=== PATIENT | female | born 1955 | race African-American/Black ===

== ENCOUNTER 2017-01-25 08:52 | Emergency (ER) | payer OTHER ==
[2017-01-25] MEDS ORDERED: Adacel (T-DAP) 0.5 ML VIAL ONE (09:26)
[2017-01-25] MEDS ORDERED: traMADol HCl 50 MG TAB ONE (09:28)
--- NOTE | 2017-01-25 10:44 | RAD ---
THREE VIEWS OF THE RIGHT FIFTH DIGIT INDICATIONS: Laceration. FINDINGS: There is metallic ornamentation overlying the wrist and right hand, which precludes reliable assessm ent. There is a soft tissue defect of the mid fifth digit of the right hand. No displaced fracture . Chronic appearing deformity of the fifth metacarpal is present. IMPRESSION: Soft tissue laceration of the fifth digit of the right hand. No underlying fracture. POS: CAMILO
--- NOTE | 2017-01-25 10:46 | RAD ---
THREE VIEWS OF THE LUMBAR SPINE INDICATIONS: Low back pain, subsequent to injury, new onset. FINDINGS: There is a mild superior endplate compression deformity of L2. There is multilevel degenerative matias nge of the lumbar spine. There is vascular calcification. Metallic clips overly the right abdomen. Pelvic phleboliths are seen. IMPRESSION: Mild superior endplate compression fracture of L2. This may be recent, in light of the history of p ain and injury. As necessary, followup with MRI may be performed to evaluate for acute marrow edema . POS: MECHELLE
== END 2017-01-25 10:32 | disposition home or self-care (01) ==
LOC: BURERS 08:52
DX: S61.216A Laceration without foreign body of right little finger without damage to nail, initial encounter (principal); S33.5XXA Sprain of ligaments of lumbar spine, initial encounter; S10.93XA Contusion of unspecified part of neck, initial encounter; S50.11XA Contusion of right forearm, initial encounter; I10 Essential (primary) hypertension; J44.9 Chronic obstructive pulmonary disease, unspecified; F17.210 Nicotine dependence, cigarettes, uncomplicated; Z79.899 Other long term (current) drug therapy; Y04.2XXA Assault by strike against or bumped into by another person, initial encounter
CPT/HCPCS: 72100; 90471; 90715

== ENCOUNTER 2020-03-17 19:39 | Emergency (ER) | payer OTHER ==
[2020-03-17 21:40] LABS: ALT (SGPT) 13 U/L (8-55); AST (SGOT) 19 U/L (5-34); Albumin 3.5 g/dL (3.4-4.8); Alkaline Phosphatase 71 U/L (40-110); Anion Gap 17 mmol/L (10-20); BUN (Urea Nitrogen) 13 mg/dL (9.8-20.1); Bilirubin, Total 0.8 mg/dL (0.2-1.2); Calc. Creatinine Clearance 0 mL/min (70-130); Calcium 8.8 mg/dL (7.8-10.44); Carbon Dioxide 25 mmol/L (23-31); Chloride 103 mmol/L (98-107); Estimated GFR-MDRD 67; Globulin 3.8 g/dL (2.4-3.5); Glucose 85 mg/dL (80-115); Potassium 3.2 mmol/L (3.5-5.1); Protein, Total 7.3 g/dL (6.0-8.3); Sodium 142 mmol/L (136-145)
[2020-03-17 21:46] LABS: Band 2 % (5-11); Eosinophils 8 % (0-10); Hemoglobin 12.3 g/dL (12.0-16.0); Lymphocytes 19 % (21-51); MDiff Complete? YES; Mean Corpuscular HGB CONC 31.2 g/dL (32.0-36.0); Mean Corpuscular Hemoglobin 29.1 pg (27.0-31.0); Mean Corpuscular Volume 93.3 fL (78.0-98.0); Mean Platelet Volume 7.1 fL (7.4-10.4); Monocytes 12 % (0-10); Neutrophil 59 % (42-75); Platelet Count 220 thou/uL (130-400); Platelet Morphology Comment Appears Adequate; RBC Distribution Width 12.6 % (11.5-14.5); RBC Morphology Normal; Red Blood Cell (RBC) Count 4.22 mill/uL (4.20-5.40); White Blood Cell (WBC) Count 8.3 thou/uL (4.8-10.8)
[2020-03-17] MEDS ORDERED: Morphine 4 MG/ML VIAL ONE (22:29)
== END 2020-03-17 23:15 | disposition home or self-care (01) ==
LOC: BURERS 19:39
DX: B34.9 Viral infection, unspecified (principal); I10 Essential (primary) hypertension; Z87.891 Personal history of nicotine dependence; J44.9 Chronic obstructive pulmonary disease, unspecified
CPT/HCPCS: 80053; 83605; 83880; 84484; 85025; 87804; 93005; 96374; J2270

== ENCOUNTER 2020-10-18 11:37 | Emergency (ER) | payer MEDICARE, OTHER ==
[~2020-10-18 11:37] MED LIST: Iopamidol 370 76% 100 ML VIAL ONE
[2020-10-18 12:27] LABS: #Eosinphils 0.1 thou/uL (0.0-0.7); #Lymphocytes 1.2 thou/uL (1.20-3.40); #Monocytes 0.5 thou/uL (0.11-0.59); #Neutrophils 9.7 thou/uL (1.40-6.50); %Basophils 0.4 % (0.0-1.0); %Eosinophils 1.2 % (0.0-10.0); %Lymphocytes 10.7 % (21.0-51.0); %Monocytes 4.2 % (0.0-10.0); %Neutrophils 83.5 % (42.0-75.0); Hemoglobin 12.6 g/dL (12.0-16.0); Mean Corpuscular HGB CONC 30.2 g/dL (32.0-36.0); Mean Corpuscular Hemoglobin 28.5 pg (27.0-31.0); Mean Corpuscular Volume 94.5 fL (78.0-98.0); Mean Platelet Volume 7.9 fL (7.4-10.4); Platelet Count 360 thou/uL (130-400); RBC Distribution Width 14.5 % (11.5-14.5); Red Blood Cell (RBC) Count 4.41 mill/uL (4.20-5.40); White Blood Cell (WBC) Count 11.6 thou/uL (4.8-10.8)
[2020-10-18] MEDS ORDERED: Ondansetron PF 4 MG/2 ML Vial ONE (12:43)
[2020-10-18] MEDS ORDERED: Cefepime 2 GM VIAL ONE (12:43)
[2020-10-18] MEDS ORDERED: Sodium Chloride 0.9% 100 ML ONE (12:43)
[2020-10-18] MEDS ORDERED: Morphine 2 MG/ML VIAL ONE (12:43)
[2020-10-18 12:44] LABS: ALT (SGPT) 22 U/L (8-55); AST (SGOT) 26 U/L (5-34); Albumin 3.7 g/dL (3.4-4.8); Alkaline Phosphatase 90 U/L (40-110); Anion Gap 17 mmol/L (10-20); BUN (Urea Nitrogen) 8 mg/dL (9.8-20.1); Bilirubin, Total 1.3 mg/dL (0.2-1.2); Calc. Creatinine Clearance 0 mL/min (70-130); Calcium 9.7 mg/dL (7.8-10.44); Carbon Dioxide 24 mmol/L (23-31); Chloride 99 mmol/L (98-107); Globulin 5.3 g/dL (2.4-3.5); Glucose 103 mg/dL (80-115); Sodium 137 mmol/L (136-145)
[2020-10-18] MEDS ORDERED: metroNIDAZOLE 500 MG/100 ML BAG ONE (12:56)
[2020-10-18 14:02] LABS: Bilirubin Negative (Negative); Blood, Urine Trace (Negative); Clarity Clear (Clear); Glucose, Urine (Dipstick) Negative (Negative); Ketone, Urine Negative (Negative); Leukocyte Moderate (Negative); Nitrite Negative (Negative); Protein, Urine (Dipstick) Negative (Neg-Trace); Urobilinogen 0.2 mg/dL (Less than 2); pH, Urine 6.5 (5.0-9.0)
[2020-10-18 14:14] LABS: Specific Gravity, Urine 1.033 (1.002-1.036)
[2020-10-18 14:28] LABS: RBC/HPF 0-3 HPF (0-3)
[2020-10-18 14:29] LABS: Bacteria/HPF Rare-Few HPF (None Seen); Squamous Epithelial 0-3 HPF (0-3)
[2020-10-18 14:42] LABS: SARS-CoV-2 NAA Rapid Test Not Detected (NotDetected)
== END 2020-10-18 14:40 | disposition short-term general hospital (02) ==
LOC: BURERS 11:37
DX: K56.609 Unspecified intestinal obstruction, unspecified as to partial versus complete obstruction (principal); N39.0 Urinary tract infection, site not specified; I10 Essential (primary) hypertension; J44.9 Chronic obstructive pulmonary disease, unspecified; Z87.891 Personal history of nicotine dependence; Z20.822 Contact with and (suspected) exposure to COVID-19
CPT/HCPCS: 0240U; 36415; 74177; 80053; 81003; 81015; 83605; 85025; 87040; 87086; 94760; 96365; 96368; 96375; 96376; J0692; J2270; J2405; J3490; Q9967

== ENCOUNTER 2022-08-08 09:21 | Inpatient (IN) | payer BC, MEDICARE ==
[2022-08-08] MEDS ORDERED: Magnesium 2 GM/50 ML BAG (IN WATER) ONE (09:44)
[2022-08-08] MEDS ORDERED: methylPREDNISolone Sod Succ/PF 125 MG/2 ML VIAL ONE (09:44)
[2022-08-08 09:56] LABS: #Basophils 0.1 thou/uL (0.0-0.2); #Eosinphils 0.1 thou/uL (0.0-0.7); #Lymphocytes 1.5 thou/uL (1.20-3.40); #Monocytes 0.6 thou/uL (0.11-0.59); #Neutrophils 3.3 thou/uL (1.40-6.50); %Basophils 2.5 % (0.0-1.0); %Eosinophils 1.4 % (0.0-10.0); %Lymphocytes 26.2 % (21.0-51.0); %Monocytes 10.8 % (0.0-10.0); %Neutrophils 59.1 % (42.0-75.0); Hemoglobin 15.8 g/dL (12.0-16.0); Mean Corpuscular Hemoglobin 30.7 pg (27.0-31.0); Mean Platelet Volume 8.6 fL (7.4-10.4); Platelet Count 181 10x3/uL (130-400); RBC Distribution Width 12.9 % (11.5-14.5); Red Blood Cell (RBC) Count 5.14 mill/uL (4.20-5.40); White Blood Cell (WBC) Count 5.7 10x3/uL (4.8-10.8)
[2022-08-08 10:06] LABS: ALT (SGPT) 24 U/L (8-55); AST (SGOT) 35 U/L (5-34); Albumin 4.1 g/dL (3.4-4.8); Alkaline Phosphatase 87 U/L (40-110); Anion Gap 16 mmol/L (10-20); BUN (Urea Nitrogen) 33 mg/dL (9.8-20.1); Bilirubin, Total 1.5 mg/dL (0.2-1.2); Calc. Creatinine Clearance 0 mL/min (70-130); Calcium 9.2 mg/dL (7.8-10.44); Carbon Dioxide 28 mmol/L (23-31); Chloride 99 mmol/L (98-107); Estimated GFR 36; Globulin 3.2 g/dL (2.4-3.5); Glucose 93 mg/dL (80-115); Potassium 3.5 mmol/L (3.5-5.1); Protein, Total 7.3 g/dL (5.8-8.1); Sodium 139 mmol/L (136-145)
[2022-08-08] MEDS ORDERED: Iopamidol 370 76% 100 ML VIAL ONE (11:16)
[2022-08-08] MEDS ORDERED: Ondansetron PF 4 MG/2 ML Vial IVP PRN (14:00)
[2022-08-08] MEDS ORDERED: Acetaminophen 325 MG TAB PO PRN (14:00)
[2022-08-08] MEDS ORDERED: Ondansetron ODT 4 MG TAB SL PRN (14:00)
[2022-08-08] MEDS ORDERED: Albuterol 200 PUFF (6.7GM INHALER) INH PRN (14:37)
[2022-08-08 14:52] VITALS: BMI 26.2
[2022-08-08 15:08] LABS: SARS-CoV-2 NAA Rapid Test DETECTED (NotDetected)
[2022-08-08] MEDS: Oxybutynin ER 5 MG TAB PO SCH (20:51)
[2022-08-08] MEDS: Amlodipine 5 MG TAB PO SCH (20:51)
[2022-08-08] MEDS: Mometasone/Formoterol 200/5 60 PUFF INH SCH (20:52)
[2022-08-08] MEDS: Letrozole 2.5 MG TAB PO SCH (20:52)
[2022-08-08] MEDS: hydrOXYzine 25 MG TAB PO SCH (20:52)
[2022-08-08] MEDS: Enoxaparin Sodium 30 MG/0.3 ML SYRINGE SC SCH (20:58)
[2022-08-08] MEDS ORDERED: BUPROPION HCL 100 MG PO SCH (21:00)
[2022-08-08] MEDS: methylPREDNISolone Sod Succ 40 MG VIAL IVP SCH (22:57)
[2022-08-09] MEDS: methylPREDNISolone Sod Succ 40 MG VIAL IVP SCH ×3 (06:03→21:48)
[2022-08-09] MEDS: Mometasone/Formoterol 200/5 60 PUFF INH SCH ×2 (08:51→21:53)
[2022-08-09] MEDS ORDERED: FLU VACC QS2022-23(65YR UP)/PF 240 MCG/0.7 ML SYRINGE IM ONE (09:00)
[2022-08-09 10:40] LABS: Anion Gap 16 mmol/L (10-20); BUN (Urea Nitrogen) 21 mg/dL (9.8-20.1); Calc. Creatinine Clearance 64 mL/min (70-130); Carbon Dioxide 25 mmol/L (23-31); Chloride 103 mmol/L (98-107); Estimated GFR 77; Glucose 170 mg/dL (80-115); Potassium 3.6 mmol/L (3.5-5.1); Sodium 140 mmol/L (136-145)
[2022-08-09] MEDS ORDERED: NIRMATRELVIR 150 MG/RITONAVIR 100 MG PO SCH (11:00)
[2022-08-09] MEDS ORDERED: Bupropion 150 MG XL TAB PO SCH (21:00)
[2022-08-09] MEDS: Oxybutynin ER 5 MG TAB PO SCH (21:49)
[2022-08-09] MEDS: Enoxaparin Sodium 30 MG/0.3 ML SYRINGE SC SCH (21:49)
[2022-08-09] MEDS: Amlodipine 5 MG TAB PO SCH (21:50)
[2022-08-09] MEDS: Letrozole 2.5 MG TAB PO SCH (21:50)
[2022-08-09] MEDS: hydrOXYzine 25 MG TAB PO SCH (21:51)
[2022-08-09] MEDS: NIRMATRELVIR 150 MG/RITONAVIR 100 MG PO SCH (21:52)
[2022-08-10] MEDS: methylPREDNISolone Sod Succ 40 MG VIAL IVP SCH (06:09)
[2022-08-10] MEDS: Mometasone/Formoterol 200/5 60 PUFF INH SCH (08:11)
[2022-08-10] MEDS: NIRMATRELVIR 150 MG/RITONAVIR 100 MG PO SCH (08:13)
[2022-08-10 11:34] VITALS: BP 129/87; TEMP 97.4
== END 2022-08-10 11:15 | disposition home or self-care (01) | DRG 177 ==
LOC: BURERS 09:21 → BURMED 12:20 → OBSVTOIN 12:20
PROVIDERS: ADMIT Family Medicine; ATTEND Family Medicine
PROC: 8E0ZXY6 Isolation (ICD-10-PCS; principal; 2022-08-08)
DX: U07.1 COVID-19 (principal); J96.21 Acute and chronic respiratory failure with hypoxia; J44.1 Chronic obstructive pulmonary disease with (acute) exacerbation; N17.9 Acute kidney failure, unspecified; I10 Essential (primary) hypertension; N32.81 Overactive bladder; F41.9 Anxiety disorder, unspecified; K21.9 Gastro-esophageal reflux disease without esophagitis; F32.A Depression, unspecified; Z85.3 Personal history of malignant neoplasm of breast; Z79.899 Other long term (current) drug therapy; Z79.52 Long term (current) use of systemic steroids; Z90.49 Acquired absence of other specified parts of digestive tract; Z87.891 Personal history of nicotine dependence; Z90.11 Acquired absence of right breast and nipple
CPT/HCPCS: 36415; 71045; 71275; 80048; 80053; 84484; 85025; 93005; 94640; 94664; 94760; 96365; 96375; G0378; J1650; J2920; J2930; J3475; J7620; Q9967; U0002

== ENCOUNTER 2024-09-29 16:06 | Outpatient (CLI) | payer OTHER | END 2024-09-29 16:07 | disposition home or self-care (01) | LOC: BURRAD 16:06 | PROVIDERS: ATTEND Family Medicine | DX: R07.89 Other chest pain (principal); J44.9 Chronic obstructive pulmonary disease, unspecified | CPT/HCPCS: 71046 ==